=== PATIENT | male | born 2000 | race Caucasian/White ===

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

== ENCOUNTER 2023-07-06 20:06 | Outpatient (CLI) | payer MEDICAID | END 2023-07-06 23:59 | disposition critical access hospital (66) | LOC: EMS 20:06 | DX: F10.129 Alcohol abuse with intoxication, unspecified (principal); R11.2 Nausea with vomiting, unspecified | CPT/HCPCS: A0425; A0429; A0999 ==

== ENCOUNTER 2023-07-06 20:29 | Emergency (ER) | payer MEDICAID ==
--- NOTE | 2023-07-06 20:56 | ED Physician Documentation ---
History of Present Illness - Stated complaint Stated Complaint: SYNCOPE/ETOH - Chief complaint Chief Complaint: General - History obtained from History obtained from: Patient - Additonal information Additional information: Otherwise healthy 22-year-old gentleman went out drinking tonight. He drank quite a bit and then sat down on a bench and reportedly could not get back up. There was no injury. He denies any complaints right now except for severe nausea and feeling dizzy. PD PAST MEDICAL HISTORY - Past Medical History Cardiovascular: None Respiratory: None Neuro: None Endocrine/Autoimmune: None GI: None : None HEENT: None Psych: None Musculoskeletal: None Derm: None - Past Surgical History Past Surgical History: Yes HEENT: Other - Present Medications Home Medications: Ambulatory Orders Medication Instructions Recorded Confirmed No Known Home Medications 03/20/18 07/06/23 - Allergies Allergies/Adverse Reactions: Allergies Allergy/AdvReac Type Severity Reaction Status Date / Time No Known Drug Allergies Allergy Verified 07/06/23 20:35 - Social History Does the pt smoke?: No Smoking Status: Never smoker Does the pt drink ETOH?: Yes Does the pt have substance abuse?: No - Immunizations Immunizations are current?: Yes - POLST Patient has POLST: No PD ED PE NORMAL - Vitals Vital signs reviewed: Yes - General General: Alert and oriented X 3, Other (He is retching, intoxicated but cooperative.) - HEENT HEENT: EOMI (With significant nystagmus) - Neck Neck: Supple, no meningeal sign, No bony TTP - Cardiac Cardiac: RRR, No murmur - Respiratory Respiratory: No respiratory distress, Clear bilaterally - Abdomen Abdomen: Normal bowel sounds, Soft, Non tender - Back Back: No CVA TTP, No spinal TTP - Derm Derm: Normal color, Warm and dry - Neuro Neuro: Alert and oriented X 3 Eye Opening: Spontaneous Motor: Obeys Commands Verbal: Oriented GCS Score: 15 - Psych Psych: Normal mood, Normal affect Results - Vitals Vitals: Vital Signs - 24 hr 07/06/23 07/06/23 07/06/23 20:30 21:12 22:30 Temperature 36.5 C Heart Rate 78 77 79 Respiratory 16 16 16 Rate Blood Pressure 122/74 101/68 101/67 O2 Saturation 98 100 99 07/07/23 00:04 Temperature 36.7 C Heart Rate 95 Respiratory 14 Rate Blood Pressure 111/63 O2 Saturation 100 Oxygen O2 Source Room air PD Medical Decision Making - ED course ED course: 22-year-old gentleman presents intoxicated and retching. There is no reported injury. This point I do not see any reason to obtain lab work Or imaging, but will hydrate him, give him some thiamine and some Reglan for his symptomatology and allow him to sober up. Care to Dr Myers at 10pm shift change pending sobriety. Departure - Departure Disposition: 01 Home, Self Care Clinical Impression: Alcohol intoxication Qualifiers: Complication of substance-induced condition: uncomplicated Qualified Code(s): F10.920 - Alcohol use, unspecified with intoxication, uncomplicated Condition: Good Record reviewed to determine appropriate education?: Yes Instructions: ED Alcohol Intoxication Comments: You were seen tonight for alcohol intoxication. Please refrain from drinking any more tonight and refrain from heavy drinking in the future. Forms: PCP List Discharge Date/Time: 07/07/23 00:18
[2023-07-06] MEDS ORDERED: THIAMINE 100 MG/1 ML 2 ML MDV ONE (21:01)
[2023-07-06] MEDS: SODIUM CHLORIDE 0.9% 1,000 ML IV STA ×2 (21:04→23:18)
[2023-07-06] MEDS: METOCLOPRAMIDE 10 MG/2 ML VIAL IVP STA (21:04)
[2023-07-06] MEDS: THIAMINE INJ 100 MG in SODIUM CHLORIDE 0.9% 50 ML IV STA (21:09)
--- NOTE | 2023-07-06 23:10 | ED Physician Documentation ---
ED Addendum - Addendum Addendum: 07/06/23 23:07 I received signout/turnover of care on this patient from Dr. Luis; please see his note for complete H&P. In brief, this patient presents with acute alcohol intoxication. . He was brought in by ambulance because he had been walking home after drinking alcohol, felt tired and wanted to sit down and thus he sat down at a bus stop but was unable to get back up. He was given Reglan, thiamine, and IV fluids. At the time of signout, the plan is to discharge him once he is finished with fluids and is awake and alert enough for a ride to come pick him up. At 23:10, I evaluated the patient. He is asleep but awakens to verbal with gentle tactile stimulation (shoulder shake). I asked the patient how he is feeling and he tells me "tired". I explained to him that at this point, unless he had other questions, I would be discharging him and that he should contact his ride. The patient then tells me that he feels "shaky" (per patient) and then exhibits mild tremulousness that was not present when I first walked into room and he was asleep. He tells me he is not a heavy/regular drinker; thus, I do not have reason to suspect alcohol withdrawal as a cause nor contributing factor. Unfortunately, the nurse then discussed with the patient that he should contact his ride and the patient says that he has no one he can contact nor means of contacting anyone. Patient says he does not have any numbers stored in his cell phone and says he does not know phone numbers of any friends nor family. When asked if he can text/message someone, he says he does not have anyone he can contact who has a car. I am ordering a second liter of NS IV as well as 4mg IV zofran and will reevaluate him after these are given with plan to then d/c to waiting room if he still cannot procure a ride. 07/06/23 23:46 I reevaluated patient just now; he is ambulating back from the bathroom. He is not requiring any assistance ambulating to/back from the bathroom. We will proceed with discharge to the waiting room.
[2023-07-06] MEDS: ONDANSETRON 4 MG/2 ML VIAL IVP STA (23:19)
[2023-07-07 00:11] VITALS: BP 111/63; O2SAT 100
== END 2023-07-07 00:18 | disposition home or self-care (01) ==
LOC: EDUNIT# → ED 20:29
DX: F10.129 Alcohol abuse with intoxication, unspecified (principal)
CPT/HCPCS: 96365; 96375; 99283; J2765; J3411; J7040

== ENCOUNTER 2023-11-21 09:10 | Outpatient (CLI) | payer MEDICAID ==
[2023-11-21 12:57] LABS: ALBUMIN 4.7 g/dL (3.2-5.5); ALKALINE PHOSPHATASE 38 IU/L (42-121); ALT ALANINE AMINOTRANSFERASE 15 IU/L (10-60); AST ASPARTATE AMINOTRANSFERASE 20 IU/L (10-42); BILIRUBIN,TOTAL 2.3 mg/dL (0.2-1.0); BUN - BLOOD UREA NITROGEN 13 mg/dL (6-20); CALCIUM 9.9 mg/dL (8.5-10.3); CARBON DIOXIDE - CO2 31 mmol/L (21-32); CHLORIDE 102 mmol/L (101-111); CHOL/HDL RATIO 2.4 (<5.0); CHOLESTEROL 140 mg/dL; CREATININE 1.1 mg/dL (0.6-1.3); GFR - MDRD 83 (>89); GLUCOSE 85 mg/dL (74-104); HDL CHOLESTEROL 58 mg/dL; LDL CHOLESTEROL,CALCULATED 65 mg/dL; LDL/HDL RATIO 1.1 (<3.6); POTASSIUM 4.3 mmol/L (3.5-4.5); SODIUM 137 mmol/L (135-145); TOTAL PROTEIN 7.1 g/dL (6.4-8.9); TRIGLYCERIDES 85 mg/dL; VLDL CHOLESTEROL 17 mg/dL
== END 2023-11-21 09:11 | disposition home or self-care (01) ==
LOC: LAB.N 09:10
DX: F64.0 Transsexualism (principal)
CPT/HCPCS: 36415; 80053; 80061; 83721